=== PATIENT | male | born 1955 | race Caucasian/White ===

== ENCOUNTER → 2020-02-09 | Outpatient (CLI) | payer BC ==
[~2020-02-09] MED LIST: CINNAMON500 MG PO; GEMFIBROZIL 60600 MG PO; GLUCOTROL10 MG PO; HYDROCHLOROTHIA25 M2 PO; LO-DOSE ASPIRIN81 M1 PO; LOTENSIN20 MG PO; LOVASTAT40 PO; TOPROL XL100 MG PO; VITAMIN C500 M1 PO; VITAMIN D350 MC3 PO
== END ==
LOC: LAB 12:05
PROVIDERS: ATTEND Orthopaedic Surgery
DX: Z01.812 Encounter for preprocedural laboratory examination (principal); Z20.828 Contact with and (suspected) exposure to other viral communicable diseases

== ENCOUNTER → 2020-02-14 | Day surgery (SDC) | payer BC ==
--- NOTE | 2020-02-09 10:49 | EKG ---
[facility] [place] [address] ELECTROCARDIOGRAM REPORT Name: DAJA CHAPA Room #: PRE [facility] M..#: [id number] Admission: Attend Phys: Dominic Dunlap MD Discharge: Date of : 57 Report #: [id number] THIS REPORT FOR: cc: Chris Schulz MD, Robert F. MD Lammoglia, Francisco J. 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
[~2020-02-14] VITALS: Ht 180.3 cm; Wt 127.0 kg
== END | disposition home or self-care (01) ==
LOC: OR → TBA 12:32
PROVIDERS: ATTEND Orthopaedic Surgery
DX: M17.12 Unilateral primary osteoarthritis, left knee (principal); Z53.8 Procedure and treatment not carried out for other reasons; G47.30 Sleep apnea, unspecified; Z87.891 Personal history of nicotine dependence; I10 Essential (primary) hypertension; E78.5 Hyperlipidemia, unspecified; E11.9 Type 2 diabetes mellitus without complications; Z98.890 Other specified postprocedural states; Z79.899 Other long term (current) drug therapy; Z79.82 Long term (current) use of aspirin